=== PATIENT | male | born 1980 | race African-American/Black ===

== ENCOUNTER 2023-05-15 10:55 | Emergency (ER) | payer SELFPAY ==
[2023-05-15 11:10] VITALS: BP 191/151; PULSE 101; RESP 18; TEMP 36.8; O2SAT 96; BMI 30.8
[2023-05-15 11:20] VITALS: BP 190/150
--- NOTE | 2023-05-15 11:23 | EXP.UTC ---
Discharge Plan Disposition Patient Disposition: Home, Self-Care Condition: Good Prescriptions Prescriptions: New ondansetron 4 mg tablet,disintegrating 4 mg PO Q8H PRN (Reason: nausea and vomiting) 4 Days Qty: 12 0RF hydrochlorothiazide 25 mg tablet 25 mg PO DAILY Qty: 30 0RF Referrals Follow up/Referrals: Provider,Referral, [Primary Care Provider] - See instructions Activity Restrictions/Add. Instructions Additional Instructions/Restrictions: You were evaluated in the emergency department today. 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 Take blood pressure medication daily as prescribed. It is very important that you keep a log of your blood pressures at home and follow-up with your primary care provider for further evaluation and management of hypertension, as you need to be on a blood pressure medication regularly and it may need to be titrated. Return to the emergency department for new or worsening symptoms. Hydrate is much as possible. Clinical Impressions Clinical Impression: Hypertension, Gastroenteritis Instructions Patient Instructions: DI for High Blood Pressure, DI for Diarrhea and Traveler's Diarrhea -- Adult, DI for Nausea -- Adult Discharge ED Provider: Melissa Dowell [facility] General Chief complaint: Nausea/Vomiting/Diarrhea Stated complaint: pain in stomach, behind ears, headache, knots all Time Seen by Provider: 05/15/23 11:23 History of Present Illness Provider Complaint: Patient states that he has had N/V/D and severe body cramps like his muscles is tightening up for a couple days States that he has been having discomfort in his chest area and feeling like his heart is beating hard and fast at times and makes his chest feel uncomfortable States that he also feels dizzy and earlier felt like his vision was blurry like he was going to pass out Related Data Previous Rx's Medication Instructions Recorded hydrochlorothiazide 25 mg tablet 25 mg PO DAILY #30 tabs 05/15/23 ondansetron 4 mg disintegrating 4 mg PO Q8H PRN nausea and 05/15/23 tablet vomiting 4 days #12 tabs Allergies Allergy/AdvReac Type Severity Reaction Status Date / Time No Known Allergies Allergy Verified 05/15/23 11:28 [facility] Disclaimer: The information contained in this section may have been updated after the patient was seen, as this information can be updated by other users. Medical History Anxiety Depression Social History (Updated 05/15/23 @ 16:54 by Marielena Nix DO) Smoking Status: Never smoker alcohol intake: never current occupational status: employed Travel in the last 8 weeks: None ROS Obtained: Yes All systems reviewed & no additional complaints except as documented and Yes Systems reviewed as appropriate & no additional complaints except as documented Constitutional Constitutional: Reports system reviewed and no additional complaints, except as documented, Reports as per HPI, Reports body ache, Reports fatigue and Reports weakness Eyes Eyes: Reports system reviewed and no additional complaints, except as documented, Reports as per HPI and Reports blurry vision ENT Ears, Nose, Mouth, and Throat: Reports system reviewed and no additional complaints, except as documented, Reports as per HPI and Reports dizziness Cardiovascular Cardiovascular: Reports system reviewed and no additional complaints, except as documented, Reports as per HPI, Reports chest pain (reports discomfort in chest earlier and felt heart was beating hard ), Reports lightheadedness and Reports palpitations Respiratory Respiratory: Reports system reviewed and no additional complaints, except as documented and Reports as per HPI Gastrointestinal Gastrointestingal: Reports system reviewed and no additional complaints, except as documented, as per HPI, diarrhea, nausea and vomiting Musculoskeletal Musculoskeletal: Reports system r
--- NOTE | 2023-05-15 11:24 | PC.NURSE ---
PATIENT SENT TO ER PER Nneka OMALLEY APRN FOR FURTHER EVALUATION. REPORT GIVEN TO Kiah HERNANDEZ RN. PATIENT TRANSPORTED TO ER VIA WHEELCHAIR WITH [facility] STAFF ASSIST AT THIS TIME
--- NOTE | 2023-05-15 11:27 | ECG_ITS ---
APPROVED REPORT Exam: Resting ECG HR:93 bpm ECG Measurements Heart Rate 93 AXES TN 158 P 47 QRSd 74 QRS 50 QT 344 T 53 QTc 395 Conclusion SINUS RHYTHM LEFT ATRIAL Abnormality BORDERLINE ECG UNCONFIRMED REPORT Electronically signed by : Elliott Webster MD 05/16/2023 09:57:49
[2023-05-15 11:40] VITALS: BP 183/146; PULSE 95; RESP 18; TEMP 36.7; O2SAT 97; BMI 30.8
--- NOTE | 2023-05-15 11:44 | PC.NURSE ---
DR VILLARREAL AT BEDSIDE
--- NOTE | 2023-05-15 11:47 | XR_ITS ---
FINAL REPORT CLINICAL HISTORY: SOA, palpitations COMPARISON: None FINDINGS: A single portable view of the chest was obtained. The heart size and pulmonary vascularity are within normal limits. The mediastinum is within normal limits. No acute pulmonary abnormality is identified. The bony thorax is intact. IMPRESSION: No active cardiopulmonary disease. Reviewed, Interpreted and Dictated by Jem Palomino III, MD Transcribed by Roshni Rincon Authenticated and [facility]
[2023-05-15 12:00] LABS: Basophils % 0.4 % (0.1-2.0); Eosinophils % 0.6 % (0.1-12.0); Hemoglobin 15.7 g/dL (14.1-18.0); Lymphocytes # 2.2 K/mm3 (0.7-4.5); Lymphocytes % 30.5 % (10-50); Mean Corpuscular HGB Conc 32.2 g/dL (31.8-35.4); Mean Corpuscular Hemoglobin 24.5 pg (27.0-31.2); Mean Corpuscular Volume 76.3 fl (80-94); Mean Platelet Volume 8.6 fl (7.4-10.4); Monocytes # 0.6 K/mm3 (0.1-1.0); Monocytes % 8.3 % (1.7-9.3); Neutrophils # 4.3 K/mm3 (1.8-7.8); Neutrophils % 60.2 % (37.0-80.0); Platelet Count 197 K/mm3 (142-424); Red Blood Count 6.42 M/mm3 (4.60-6.20); Red Cell Distribution Width 14.9 % (11.5-17.5); White Blood Count 7.1 K/mm3 (4.8-10.8)
[2023-05-15 12:02] LABS: Alanine Aminotransferase 26 U/L (12-78); Albumin Level 4.7 g/dl (3.5-5.0); Albumin/Globulin Ratio 1.3 (1.1-1.8); Alkaline Phosphatase 73 U/L (38-126); Anion Gap 12.2 mEq/L (5-15); Aspartate Amino Transferase 34 U/L (17-59); Bilirubin,Total 0.7 mg/dl (0.2-1.3); Blood Urea Nitrogen 18 mg/dl (9-20); Carbon Dioxide 24 mmol/L (22.0-30.0); Chloride 102 mmol/L (98-107); Creatine Kinase 156 U/L (55-170); Creatinine Clearance Estimated 100 mL/min (50-200); Estimated Glomerular Filt Rate 60 ml/min (>60); GFR (African American) 73 ML/MIN (>60); Globulin 3.6 g/dL (1.3-3.2); Glucose 107 mg/dl (74-100); Magnesium 1.9 mg/dl (1.6-2.3); Potassium 4.2 mmoL/L (3.5-5.1); Sodium 134 mmol/L (136-145); Total Protein,Serum 8.3 g/dl (6.3-8.2)
--- NOTE | 2023-05-15 12:04 | PC.NURSE ---
XR AT BEDSIDE
[2023-05-15 12:19] LABS: T4 (Thyroxine) 14.9 ug/dl (5.53-11.0)
[2023-05-15 12:21] LABS: Troponin I < 0.01 ng/ml (0.00-0.034)
--- NOTE | 2023-05-15 12:29 | PC.NURSE ---
PT MEDICATED PER EMAR, NO NEEDS AT THIS TIME
[2023-05-15 12:30] VITALS: BP 192/125; PULSE 91; RESP 18; O2SAT 98
[2023-05-15 12:32] LABS: Thyroid Stimulating Hormone 1.63 uIU/mL (0.465-4.68)
--- NOTE | 2023-05-15 13:07 | HMH.EDGENADL ---
Discharge Plan Disposition Chief Complaint: Nausea/Vomiting/Diarrhea Referrals Follow up/Referrals: Provider,Referral, MD [Primary Care Provider] - See instructions Instructions Patient Instructions: DI for Diarrhea and Traveler's Diarrhea -- Adult, DI for Diarrhea and Traveler's Diarrhea -- Child, DI for Nausea -- Adult, DI for Nausea -- Child Discharge ED Provider: Melissa Dowell General Adult HPI General Chief complaint: Nausea/Vomiting/Diarrhea Stated complaint: pain in stomach, behind ears, headache, knots all Time Seen by Provider: 05/15/23 11:23 Mode of Arrival: Ambulatory Source of Information: Patient and Medical Record Limitations: No Limitations Description of Symptoms (Recalled from ER Triage Doc. by RN): c/o n/v/d, dizziness, feeling of rapid irregular heartbeat, thinks that he got food poision a few days ago. Related Data Allergies Allergy/AdvReac Type Severity Reaction Status Date / Time No Known Allergies Allergy Verified 05/15/23 11:28 [facility] Disclaimer: The information contained in this section may have been updated after the patient was seen, as this information can be updated by other users. Medical History (Updated 05/15/23 @ 11:29 by Carly Esparza RN) Anxiety Depression Social History Smoking Status: Never smoker Physical Exam General General appearance: alert and in no apparent distress Medical Decision Making Vital Signs: 05/15/23 11:10 05/15/23 11:20 05/15/23 11:40 Temperature 98.3 F 98.1 F Temperature Source Oral Oral Pulse Rate [Right Brachial] 101 H 95 H Respiratory Rate 18 18 Blood Pressure [Right Arm] 191/151 H 190/150 H 183/146 H Blood Pressure Mean [Right Arm] 164 163 158 Blood Pressure Source [Right Arm] Automatic Cuff Manual Cuff/ Auscultation Automatic Cuff Blood Pressure Position [Right Arm] Sitting Sitting 02 Sat by Pulse Oximetry 96 97 Oxygen Delivery Method Room Air Room Air Lab Data Lab Results 05/15/23 11:32: WBC 7.1, RBC 6.42 H, Hgb 15.7, Hct 49.0, MCV 76.3 L, MCH 24.5 L, MCHC 32.2, RDW 14.9, Plt Count 197, MPV 8.6, Neut % (Auto) 60.2, Lymph % (Auto) 30.5, [place] % (Auto) 8.3, Eos % (Auto) 0.6, Baso % (Auto) 0.4, Neut # (Auto) 4.3, Lymph # (Auto) 2.2, [place] # (Auto) 0.6, Eos # (Auto) 0.0, Baso # (Auto) 0.0, Sodium 134 L, Potassium 4.2, Chloride 102, Carbon Dioxide 24, Anion Gap 12.2, BUN 18, Creatinine 1.30 H, Estimated Creat Clear 100, Estimated GFR 60, Est GFR ( Amer) 73, Glucose 107 H, Calcium 9.0, Magnesium 1.9, Total Bilirubin 0.7, AST 34, ALT 26, Alkaline Phosphatase 73, Total Creatine Kinase 156, Troponin I < 0.01, Total Protein 8.3 H, Albumin 4.7, Globulin 3.6 H, Albumin/Globulin Ratio 1.3, TSH 1.63, Thyroxine (T4) 14.9 H 05/15/23 11:32 05/15/23 11:32 Orders (Tests/Meds): ED MEDICATIONS Discontinued Medications Generic Name Dose Route Start Last Admin Trade Name Freq PRN Reason Stop Dose Admin Acetaminophen 1,000 mg 05/15/23 11:47 05/15/23 12:16 Acetaminophen 1,000mg/100ml Vial IV 05/15/23 11:48 1,000 mg ONCE ONE Administration Lactated Ringer's 1,000 mls @ 999 mls/hr 05/15/23 11:47 05/15/23 12:15 Lactated Ringer's 1000 Ml Bag IV 05/15/23 12:47 999 mls/hr .Q1H1M ONE Administration Ketorolac Tromethamine 15 mg 05/15/23 11:47 05/15/23 12:16 Ketorolac 30mg/Ml Vial IV 05/15/23 11:48 15 mg ONCE ONE Administration Ondansetron HCl 4 mg 05/15/23 11:47 05/15/23 12:16 Ondansetron 4mg/2ml Vial IV 05/15/23 11:48 4 mg ONCE ONE Administration ORDERS Category Date Time Status XR chest portable Stat Exams 05/15/23 11:47 Taken Complete Blood Count Auto Diff Stat Lab 05/15/23 11:32 Completed Comprehensive Metabolic Panel Stat Lab 05/15/23 11:32 Completed Creatine Kinase Stat Lab 05/15/23 11:32 Completed Diarrhea 23 Panel, PCR Stat Lab 05/15/23 11:47 Ordered Lactic Acid Stat Lab 05/15/23 11:47 Ordered Magnesium Stat Lab 05/15
--- NOTE | 2023-05-15 13:08 | HMH.EDGENADL ---
Discharge Plan Disposition Patient Disposition: Home, Self-Care Condition: Good Prescriptions Prescriptions: New ondansetron 4 mg tablet,disintegrating 4 mg PO Q8H PRN (Reason: nausea and vomiting) 4 Days Qty: 12 0RF hydrochlorothiazide 25 mg tablet 25 mg PO DAILY Qty: 30 0RF Referrals Follow up/Referrals: Provider,Referral, [Primary Care Provider] - See instructions Activity Restrictions/Add. Instructions Additional Instructions/Restrictions: You were evaluated in the emergency department today. 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 Take blood pressure medication daily as prescribed. It is very important that you keep a log of your blood pressures at home and follow-up with your primary care provider for further evaluation and management of hypertension, as you need to be on a blood pressure medication regularly and it may need to be titrated. Return to the emergency department for new or worsening symptoms. Hydrate is much as possible. Clinical Impressions Clinical Impression: Hypertension, Gastroenteritis Instructions Patient Instructions: DI for High Blood Pressure, DI for Diarrhea and Traveler's Diarrhea -- Adult, DI for Nausea -- Adult Discharge ED Provider: Melissa Dowell Adult HPI General Chief complaint: Nausea/Vomiting/Diarrhea Stated complaint: pain in stomach, behind ears, headache, knots all Time Seen by Provider: 05/15/23 11:23 Mode of Arrival: Ambulatory Source of Information: Patient and Medical Record Limitations: No Limitations Description of Symptoms (Recalled from ER Triage Doc. by RN): c/o n/v/d, dizziness, feeling of rapid irregular heartbeat, thinks that he got food poision a few days ago. History of Present Illness HPI narrative: This patient is a 43-year-old male who reports history of hypertension but has been noncompliant with medications presenting to the emergency department for evaluation with concern for multiple complaints. He states that he ate some sprouted bad potatoes and thinks he got food poisoning a few days ago. Since then, he has had nausea, nonbloody nonbilious emesis, watery diarrhea, lightheadedness, and feeling of heart palpitations. He also notes that he is starting to get cramping and aching all over. He denies any other concerns or complaints. He states that he wants to get tested for food poisoning and botulism. I had an interactive discussion with the urgent care provider who sent him over for evaluation with concern that he was having palpitations, as she was afraid that he had chest pain. She also noted his blood pressure was high with a systolic in the 180s. Related Data Previous Rx's Medication Instructions Recorded hydrochlorothiazide 25 mg tablet 25 mg PO DAILY #30 tabs 05/15/23 ondansetron 4 mg disintegrating 4 mg PO Q8H PRN nausea and 05/15/23 tablet vomiting 4 days #12 tabs Allergies Allergy/AdvReac Type Severity Reaction Status Date / Time No Known Allergies Allergy Verified 05/15/23 11:28 [facility] Disclaimer: The information contained in this section may have been updated after the patient was seen, as this information can be updated by other users. Medical History Anxiety Depression Social History Smoking Status: Never smoker alcohol intake: never current occupational status: employed Travel in the last 8 weeks: None ROS Obtained: Yes All systems reviewed & no additional complaints except as documented Physical Exam General General appearance: alert and in no apparent distress Head Head exam: atraumatic and normocephalic Eye Eye exam: Present normal appearance, PERRL and EOMI ENT ENT exam: Present normal exam, normal oropharynx, mucous membranes moist and normal external ear exam Neck Neck exam: Present normal inspection, full ROM and trachea midline; Absent ten
--- NOTE | 2023-05-15 13:13 | PC.NURSE ---
informed patient we still needed a UA specimen. Patient ambulated to bathroom.
--- NOTE | 2023-05-15 13:28 | PC.NURSE ---
Assumed care of patient at this time.
[2023-05-15 13:30] VITALS: BP 187/140; PULSE 95; RESP 18; O2SAT 98
[2023-05-15 13:39] LABS: Microscopic, Urine URINE MICROSCOPIC (MICROSCOPIC)
[2023-05-15 13:40] LABS: Appearance,Urine CLEAR (Clear); Blood, Urine TRACE-I (Negative); Color,Urine YELLOW (Yellow); Glucose,Urine (UA) Negative (Negative); Ketones,Urine TRACE (Negative); Leukocyte Esterase,Urine Negative (Negative); Nitrate,Urine Negative (Negative); Protein,Urine 1+ (Negative); Specific Gravity, Urine 1.025 (1.005-1.030); Urobilinogen,Urine 0.2 EU/dl (0.2)
[2023-05-15 13:46] LABS: Bilirubin,Urine Negative (Negative)
[2023-05-15 13:53] LABS: Coronavirus 19, PCR Not Detected (NotDetected); Influenza A, PCR Not Detected (NotDetected); Influenza B, PCR Not Detected (NotDetected)
[2023-05-15 14:11] VITALS: BP 187/147; PULSE 84; RESP 18; TEMP 36.8; O2SAT 97
[2023-05-15 14:35] LABS: Bacteria,Urine Trace /lpf; Squamous Epithelial Cell,Urine Occasional #/hpf (0-5); WBC,Urine Occasional #/hpf (0-3)
== END 2023-05-15 14:13 | disposition home or self-care (01) ==
LOC: UTC 11:03 → ER 11:32
PROVIDERS: Emergency Medicine; Emergency Provider Nurse Practitioner
DX: K52.9 Noninfective gastroenteritis and colitis, unspecified (principal); R51.9 Headache, unspecified; R42 Dizziness and giddiness; I10 Essential (primary) hypertension; R00.2 Palpitations
CPT/HCPCS: 71045; 80053; 81001; 82550; 83605; 83735; 84436; 84443; 84484; 85025; 87636; 93005; 96361; 96374; 96375; 99285; J0131; J2405

== ENCOUNTER → 2023-05-20 10:00 | Outpatient (CLI) | payer MEDICAID, SELFPAY ==
[2023-05-20 18:51] LABS: Basophils % 0.8 % (0.1-2.0); Eosinophils # 0.1 K/mm3 (0.0-0.4); Eosinophils % 2.2 % (0.1-12.0); Hematocrit 43.5 % (42.0-52.0); Hemoglobin 14.2 g/dL (14.1-18.0); Lymphocytes # 2.5 K/mm3 (0.7-4.5); Mean Corpuscular HGB Conc 32.6 g/dL (31.8-35.4); Mean Corpuscular Hemoglobin 24.9 pg (27.0-31.2); Mean Corpuscular Volume 76.3 fl (80-94); Mean Platelet Volume 10.2 fl (7.4-10.4); Monocytes # 0.3 K/mm3 (0.1-1.0); Monocytes % 5.9 % (1.7-9.3); Neutrophils # 2.2 K/mm3 (1.8-7.8); Neutrophils % 43.1 % (37.0-80.0); Platelet Count 212 K/mm3 (142-424); Red Cell Distribution Width 14.9 % (11.5-17.5); White Blood Count 5.2 K/mm3 (4.8-10.8)
[2023-05-20 19:18] LABS: Alanine Aminotransferase 22 U/L (12-78); Albumin Level 4.2 g/dl (3.5-5.0); Albumin/Globulin Ratio 1.4 (1.1-1.8); Alkaline Phosphatase 72 U/L (38-126); Anion Gap 11.1 mEq/L (5-15); Aspartate Amino Transferase 26 U/L (17-59); Bilirubin,Total 0.5 mg/dl (0.2-1.3); Blood Urea Nitrogen 11 mg/dl (9-20); Calcium 8.5 mg/dl (8.4-10.2); Carbon Dioxide 23 mmol/L (22.0-30.0); Chloride 106 mmol/L (98-107); Chol/HDL Ratio 4.3 (1-3.5); Cholesterol 104 mg/dl (140-200); Estimated Glomerular Filt Rate 73 ml/min (>60); GFR (African American) 88 ML/MIN (>60); Globulin 2.9 g/dL (1.3-3.2); Glucose 98 mg/dl (74-100); HDL Cholesterol 24 mg/dl (40-60); Potassium 4.1 mmoL/L (3.5-5.1); Sodium 136 mmol/L (136-145); Total Protein,Serum 7.1 g/dl (6.3-8.2); Triglycerides 98 mg/dl (30-150); VLDL Cholesterol 20 mg/dL (0-40)
[2023-05-20 19:34] LABS: Triiodothryronine (T3) Uptake 30 % (23.5-40.5)
[2023-05-20 19:44] LABS: Direct LDL Cholesterol 66.57 mg/dL (100-129)
[2023-05-20 19:47] LABS: Thyroid Stimulating Hormone 0.53 uIU/mL (0.465-4.68)
[2023-05-20 19:49] LABS: Prostate Specific Ag Screen 0.8 ng/ml (0.0-4.0)
[2023-05-20 20:08] LABS: Vitamin B12 257 pg/mL (239-931)
[2023-05-22 10:08] LABS: Testosterone,Total 380 ng/dL (264-916)
[2023-05-28 03:46] LABS: 1,25 Dihydroxy Vitamin D 52 pg/mL (.); 1,25-Dihydroxy, Vitamin D-2 <10 pg/mL (.); 1,25-Dihydroxy, Vitamin D-3 51 pg/mL (.)
== END ==
LOC: LAB.DROPOF 05-21 10:00
PROVIDERS: PCP Family Medicine; Visit Provider Family Medicine
DX: R53.83 Other fatigue; R79.89 Other specified abnormal findings of blood chemistry; E66.9 Obesity, unspecified; Z68.31 Body mass index [BMI] 31.0-31.9, adult; I10 Essential (primary) hypertension; Z12.5 Encounter for screening for malignant neoplasm of prostate
CPT/HCPCS: 80053; 80061; 82607; 82652; 84403; 84436; 84443; 84479; 85025; G0103

== ENCOUNTER 2024-10-20 11:48 | Outpatient (CLI) | payer MEDICAID, SELFPAY ==
[2024-10-20 12:10] LABS: Basophils % 0.6 % (0.1-2.0); Eosinophils % 0.8 % (0.1-12.0); Hematocrit 42.1 % (42.0-52.0); Hemoglobin 13.3 g/dL (14.1-18.0); Immature Granulocytes # 0.01 10^3uL; Immature Granulocytes % 0.2 %; Lymphocytes # 1.8 K/mm3 (0.7-4.5); Lymphocytes % 34.6 % (10-50); Mean Corpuscular HGB Conc 31.6 g/dL (31.8-35.4); Mean Corpuscular Hemoglobin 23.7 pg (27.0-31.2); Mean Corpuscular Volume 74.9 fl (80-94); Monocytes # 0.3 K/mm3 (0.1-1.0); Monocytes % 6.6 % (1.7-9.3); Neutrophils % 57.2 % (37.0-80.0); Nucleated Red Blood Cells # 0 10^3/uL; Nucleated Red Blood Cells % 0 %; Platelet Count 189 K/mm3 (142-424); Red Blood Count 5.62 M/mm3 (4.60-6.20); Red Cell Distribution Width 14.6 % (11.5-17.5); Red Cell Distribution Width-SD 39.1 fL; White Blood Count 5.2 K/mm3 (4.8-10.8)
[2024-10-20 12:40] LABS: Alanine Aminotransferase 23 U/L (12-78); Albumin Level 4.3 g/dl (3.5-5.0); Albumin/Globulin Ratio 1.7 (1.1-1.8); Alkaline Phosphatase 66 U/L (38-126); Anion Gap 10.1 mEq/L (5-15); Aspartate Amino Transferase 23 U/L (17-59); Bilirubin,Total 0.7 mg/dl (0.2-1.3); Blood Urea Nitrogen 11 mg/dl (9-20); Calcium 9.1 mg/dl (8.4-10.2); Carbon Dioxide 24 mmol/L (22.0-30.0); Chloride 108 mmol/L (98-107); Chol/HDL Ratio 2.6 (1-3.5); Cholesterol 97 mg/dl (140-200); Estimated Glomerular Filt Rate 65 ml/min (>60); GFR (African American) 79 ML/MIN (>60); Globulin 2.5 g/dL (1.3-3.2); Glucose 136 mg/dl (74-100); HDL Cholesterol 38 mg/dl (40-60); Potassium 4.1 mmoL/L (3.5-5.1); Sodium 138 mmol/L (136-145); Total Protein,Serum 6.8 g/dl (6.3-8.2); Triglycerides 46 mg/dl (30-150); VLDL Cholesterol 9 mg/dL (0-40)
[2024-10-20 12:51] LABS: Direct LDL Cholesterol 45.76 mg/dL (100-129)
[2024-10-20 12:56] LABS: 25-OH Vitamin D, Total 30.2 ng/mL (30-100)
[2024-10-20 13:06] LABS: Iron 81 ug/dL (49-181)
[2024-10-20 13:11] LABS: Thyroid Stimulating Hormone 0.98 uIU/mL (0.465-4.68)
[2024-10-20 13:16] LABS: Total Iron Binding Capacity 294 ug/dL (261-462)
[2024-10-20 13:43] LABS: Ferritin 56.9 ng/ml (17.9-464)
[2024-10-20 13:49] LABS: Hemoglobin A1C 5.6 % (4.0-6.0)
== END 2024-10-20 23:59 | disposition home or self-care (01) ==
PROVIDERS: PCP Family Medicine; Visit Provider Family Medicine
DX: I10 Essential (primary) hypertension (principal); D50.9 Iron deficiency anemia, unspecified; R79.89 Other specified abnormal findings of blood chemistry; R40.0 Somnolence; R53.83 Other fatigue
CPT/HCPCS: 80053; 80061; 82306; 82728; 83036; 83540; 83550; 84443; 85025

== ENCOUNTER 2024-10-20 14:10 | Outpatient (CLI) | payer MEDICAID, SELFPAY ==
[2024-10-20 14:20] VITALS: BP 169/108; PULSE 98; RESP 19; O2SAT 98
[2024-10-20] MEDS: 0.9 % SODIUM CHLORIDE 1000ML 1,000 ML 999 ML IV (14:20)
[2024-10-20 15:25] VITALS: BP 189/98; PULSE 98; RESP 18; O2SAT 99
== END 2024-10-20 15:25 | disposition home or self-care (01) ==
LOC: INF 14:11
PROVIDERS: PCP Family Medicine; Visit Provider Family Medicine
DX: K52.9 Noninfective gastroenteritis and colitis, unspecified (principal)
CPT/HCPCS: 96360; J7030

== ENCOUNTER 2024-12-01 08:08 | Outpatient (CLI) | payer MEDICAID, SELFPAY ==
--- NOTE | 2024-12-01 08:00 | CA_ITS ---
FINAL REPORT CLINICAL HISTORY: HTN FINDINGS: DOPPLER RENAL VESSELS HISTORY: Hypertension . FINDINGS: Intrarenal resistive indices on the right are 0.52-0.60, normal . Intrarenal resistive indices on the left are 0.54-0.58, normal . Right main renal artery systolic velocity: 72 cm/sec. Aortic-right renal artery flow velocity ratio: 0.80 COMMENT: No evidence of hemodynamically significant renal artery stenosis . Left main renal artery systolic velocity: 104 cm/sec. Aortic-left renal artery flow velocity ratio: 1.16 COMMENT: No evidence of hemodynamically significant renal artery stenosis . IMPRESSION: No evidence of hemodynamically significant renal artery stenosis CTA or gadolinium-enhanced MR may be considered as a more sensitive exam. Alternatively noncontrast MRI may be considered for assessing main renal arteries for stenosis as a more sensitive exam if the patient has renal insufficiency. Reviewed, Interpreted and Dictated by Mulu Cho MD Transcribed by Concepcion Martin Authenticated and [facility]
--- NOTE | 2024-12-01 09:00 | US_ITS ---
FINAL REPORT CLINICAL HISTORY: htn COMPARISON: None FINDINGS: RENAL ULTRASOUND Ultrasound images of the kidneys were obtained. There is incidental note of fatty change of the liver. The right kidney measures 9.0 cm in length. It is normal echogenicity. There is no hydronephrosis. The left kidney measures 9.2 cm in length. It is normal echogenicity. There is no hydronephrosis. IMPRESSION: Normal renal ultrasound. Reviewed, Interpreted and Dictated by Mulu Cho MD Transcribed by Concepcion Martin Authenticated and [facility]
== END 2024-12-01 23:59 | disposition home or self-care (01) ==
LOC: RT 08:08
PROVIDERS: PCP Family Medicine; Visit Provider Family Medicine
DX: I10 Essential (primary) hypertension (principal)
CPT/HCPCS: 76770; 93976